=== PATIENT | male | born 1995 | race Caucasian/White ===

== ENCOUNTER 2018-05-28 13:10 | Emergency (ER) | payer OTHER ==
[~2018-05-28] VITALS: Ht 180.3 cm; Wt 77.1 kg
[2018-05-28 13:14] VITALS: BP 144/78
--- NOTE | 2018-05-28 13:15 | NUR ---
PT. BIB BROTHERS FOR R FA LACERATION. PT. ARRIVED WITH A 5-6 INCH LACERATION TO R FA WITH MUSCLE TISSUE VISIBLE, BLEEDING CONTROLLED AT THIS TIME. PT. UNABLE TO BEND R 4TH DIGIT AND 5TH DIGIT. CAP REFILL LESS THAN 3 SEC. PT. ADMITS TO ETOH AND DRUG USE BUT DID NOT SPECIFY. PT STATES " I WAS TRYING TO TAKE A SHOWER AND I FELL AND WENT THROUGH THE GLASS DOORS OF THE SHOWER AND CUT MY ARM". VSS. PT. COUSIN AND BROTHER PRESENT. PT. PRESENTS DIAPHORETIC BUT AAOX4. RR EVEN AND UNLABORED. ER MD TA AT BEDSIDE. SAFETY PRECAUTIONS IMPLEMENTED. WILL CONTINUE TO MONITOR.
--- NOTE | 2018-05-28 13:20 | NUR ---
DR. TA AT BEDSIDE DOING LAC REPAIR AT BEDSIDE AT THIS TIME.
[2018-05-28] MEDS ORDERED: LIDOCAINE 2% 1000 MG/50 ML VIAL INJ ONE (13:23)
[2018-05-28] MEDS ORDERED: ceFAZolin 1,000 MG VIAL ONE (13:50)
[2018-05-28] MEDS: KETOROLAC 30 MG/ML VIAL IVP ONE (13:56)
[2018-05-28] MEDS: NEOMYCIN/POLYMYXIN/BACITRACIN 0.9 GM/1 PKT TP ONE (14:05)
[2018-05-28] MEDS: LIDOCAINE 2% 1000 MG/50 ML VIAL INJ ONE (14:14)
--- NOTE | 2018-05-28 14:30 | NUR ---
PT. RESTING COMFORTABLY IN BED , RR EVEN AND UNLABORED. DR. TA AT BEDSIDE AT THIS TIME. VSS. WILL CONTINUE TO MONITOR
--- NOTE | 2018-05-28 14:44 | NUR ---
PT. STATES " I AM IN A LOT OF PAIN" . 06/[address] R FA[address]. TA NOTIFIED. WILL CONTINUE TO MONITOR. ORDERS TO BE INPUTED AT THIS TIME PER DR. TA.
[2018-05-28] MEDS: MORPHINE SULFATE 4 MG/ML SYR IVP ONE (15:04)
--- NOTE | 2018-05-28 15:38 | NUR ---
PATIENT ELOPED FROM FACILITY. DISCHARGE INSTRUCTIONS NOT GIVEN TO PATIENT. DR. TA NOTIFIED.
[2018-05-28 15:49] VITALS: BP 140/72
== END 2018-05-28 15:38 | disposition left against medical advice (07) ==
LOC: MED 13:10
DX: S56.821A Laceration of other muscles, fascia and tendons at forearm level, right arm, initial encounter (principal); F10.129 Alcohol abuse with intoxication, unspecified; F17.210 Nicotine dependence, cigarettes, uncomplicated; W25.XXXA Contact with sharp glass, initial encounter; Y93.E1 Activity, personal bathing and showering; Y92.89 Other specified places as the place of occurrence of the external cause; Y99.8 Other external cause status
CPT/HCPCS: 12032; 90471; 90715; 96365; 96375; 99285; J0690; J1885; J2001; J2270